=== PATIENT | female | born 1940 | race Caucasian/White ===

== ENCOUNTER 2023-02-11 14:35 | Emergency (ER) | payer MEDICARE, SELFPAY ==
[2023-02-11 15:01] VITALS: BP 113/57; PULSE 68; RESP 18; TEMP 36.2; O2SAT 100
--- NOTE | 2023-02-11 15:45 | ED.SKABFB ---
HPI - Skin/Abscess/Foreign Bdy General Chief complaint: Skin/Abscess/Foreign Body Stated complaint: Bruising Rt Upper Arm Time Seen by Provider: 02/11/23 15:45 Source: patient Mode of arrival: ambulatory Limitations: no limitations History of Present Illness HPI narrative: 82-year-old female presented for complaint of bruising to the right upper arm over the past few days. Endorses shoulder tenderness. Denies injury or fall. Taking coumadin. Denies decreased range of motion, numbness, tingling, weakness to the upper extremity. Related Data Home Medications Medication Instructions Recorded Confirmed allopurinol 100 mg tablet 100 mg PO DAILY 02/11/23 02/11/23 amlodipine 5 mg tablet 2.5 mg PO DAILY 02/11/23 02/11/23 atorvastatin 20 mg tablet 20 mg PO DAILY 02/11/23 02/11/23 clonazepam 0.5 mg tablet 0.5 mg PO BID 02/11/23 02/11/23 famotidine 20 mg tablet 20 mg PO BID 02/11/23 02/11/23 furosemide 40 mg tablet 40 mg PO DAILY 02/11/23 02/11/23 loratadine 10 mg tablet 10 mg PO DAILY 02/11/23 02/11/23 omeprazole 40 mg capsule,delayed 40 mg PO DAILY 02/11/23 02/11/23 release pen needle, diabetic 31 gauge x 02/11/23 02/11/23/16 (BD Ultra-Fine Mini Pen Needle) potassium chloride 10 mEq 20 meq PO DAILY 02/11/23 02/11/23 tablet,extended release(part/cryst) spironolactone 50 mg tablet 50 mg PO DAILY 02/11/23 02/11/23 warfarin 3 mg tablet 3 mg PO HS 02/11/23 02/11/23 Allergies Allergy/AdvReac Type Severity Reaction Status Date / Time PROCAINE HCL Allergy Unknown Uncoded 02/11/23 14:50 Review of Systems Review of Systems: CONSTITUTIONAL: Denies body aches, fever, chills, or sweats. EYES: Denies visual changes, redness, or discharge. ENT: Denies rhinorrhea, congestion CARDIOVASCULAR: Denies chest pain, palpitations, or edema. RESPIRATORY: Denies cough or dyspnea. GASTROINTESTINAL: Denies abdominal pain, nausea, vomiting, or diarrhea. SKIN: Reports bruising to right upper arm MUSCULOSKELETAL: Denies back pain, joint pain, or myalgia. NEUROLOGIC: Denies headache, numbness, tingling, or weakness. FOR[facility] Past Medical History Medical History (Updated 02/11/23 @ 17:46 by Ina Quintana APRN) Afib Diabetes GERD (gastroesophageal reflux disease) Hypertension Surgical History Surgical History (Updated 02/11/23 @ 17:46 by Ina Quintana APRN) S/P PTCA (percutaneous transluminal coronary angioplasty) Comments At time of signature, I have reviewed and agree with nursing past medical, surgical, social and family history unless otherwise noted. Please see nursing chart for further information. There is no relevant family history pertinent to the presenting complaint Exam Narrative: GENERAL: Well-appearing HEAD: Normocephalic, atraumatic. EYES: conjunctivae clear, and EOMI. ENT: Mucous membranes moist. Oropharynx without edema, erythema or lesions. NECK: Supple. No lymphadenopathy CHEST: Clear to auscultation. HEART: Regular rate and rhythm. SKIN: Warm, dry. Right lateral deltoid with yellow ecchymosis, right biceps with 15 x 8 cm area of ecchymoses purple in color. Ecchymosis is soft, nontender, normal temp. Bilateral axilla with erythematous papules on erythematous base consistent with yeast. EXT: Full active ROM to RUE. Mild tenderness with palpation over upper deltoid and yellow area of ecchymosis, no apparent joint pain with palpation; Circulation and sensation intact to extremity. No open wounds. NEURO: Alert and oriented x3. Course Course Emergency Course: Patient is aware of diagnosis, understands and agrees to treatment plan. Anticipatory guidance given. Patient agrees to follow-up as directed and is aware of reasons to seek care at the emergency department. Portions of this record may have been created with voice recognition software Level of Care: Express Care Visit Vital Signs Vital signs: Vital Signs Temperature 97.2 F L 02/11/23 15:01 Pulse Rate 68 02/11/23
== END 2023-02-11 15:58 | disposition home or self-care (01) ==
PROVIDERS: Emergency Provider Nurse Practitioner Family; PCP Nurse Practitioner Family
DX: B37.2 Candidiasis of skin and nail (principal); S40.021A Contusion of right upper arm, initial encounter; X58.XXXA Exposure to other specified factors, initial encounter; I48.91 Unspecified atrial fibrillation; E11.9 Type 2 diabetes mellitus without complications; K21.9 Gastro-esophageal reflux disease without esophagitis; I10 Essential (primary) hypertension; Z95.1 Presence of aortocoronary bypass graft; Z79.01 Long term (current) use of anticoagulants
CPT/HCPCS: 99213; G0463

== ENCOUNTER 2023-04-25 17:36 | Emergency (ER) | payer MEDICARE, SELFPAY ==
[2023-04-25 17:48] VITALS: BP 127/70; PULSE 83; RESP 18; TEMP 36.2; O2SAT 97
--- NOTE | 2023-04-25 18:00 | ED.GENADULT ---
HPI - General Adult General Chief complaint: Urogenital-Female Stated complaint: Female Urogenital Source: patient, RN notes reviewed and old records reviewed Mode of arrival: ambulatory Limitations: no limitations History of Present Illness HPI narrative: 82-year-old female presents to [facility] with complaints abdominal pain that started this a.m. with nausea and fatigue. Patient states she is worried it could be a UTI, sedation although patient denies urinary symptoms. Patient has not taken any thing for her pain. patient denies vomiting diarrhea MD complaint: abdominal pain Onset (ago): day(s) (1) Location: abdomen Radiation: non-radiation Severity: moderate Quality: aching Pain Consistency: constant Relieving factors: none Exacerbating factors: none Associated symptoms: nausea/vomiting Treatments prior to arrival: none Related Data Home Medications Medication Instructions Recorded Confirmed allopurinol 100 mg tablet 100 mg PO DAILY 02/11/23 04/25/23 amlodipine 5 mg tablet 2.5 mg PO DAILY 02/11/23 04/25/23 atorvastatin 20 mg tablet 20 mg PO DAILY 02/11/23 04/25/23 clonazepam 0.5 mg tablet 0.5 mg PO BID 02/11/23 04/25/23 famotidine 20 mg tablet 20 mg PO BID 02/11/23 04/25/23 furosemide 40 mg tablet 40 mg PO DAILY 02/11/23 04/25/23 loratadine 10 mg tablet 10 mg PO DAILY 02/11/23 04/25/23 omeprazole 40 mg capsule,delayed 40 mg PO DAILY 02/11/23 04/25/23 release pen needle, diabetic 31 gauge x 02/11/23 04/25/23 3/16 (BD Ultra-Fine Mini Pen Needle) potassium chloride 10 mEq 20 meq PO DAILY 02/11/23 04/25/23 tablet,extended release(part/cryst) spironolactone 50 mg tablet 50 mg PO DAILY 02/11/23 04/25/23 warfarin 3 mg tablet 3 mg PO HS 02/11/23 04/25/23 clopidogrel 75 mg tablet 75 mg PO DAILY 04/25/23 04/25/23 ondansetron 4 mg disintegrating 4 mg PO PRN PRN Nausea 04/25/23 04/25/23 tablet Allergies Allergy/AdvReac Type Severity Reaction Status Date / Time PROCAINE HCL AdvReac Intermediate Nausea and Uncoded 04/25/23 18:20 Vomiting Review of Systems Constitutional: Constitutional: Reports fatigue Eyes: Eyes: Reports no additional eye complaints ENT: Reports system reviewed and no additional complaints, except as documented Cardiovascular: Cardiovascular: Reports no additional cardiovascular complaints Respiratory: Respiratory: Reports no additional respiratory complaints Gastrointestinal: Gastrointestinal: Reports abdominal pain and Reports nausea Genitourinary: Genitourinary: Denies post void dribbling, Denies nocturia, Denies dysuria, Denies prolapse symptoms, Denies flank pain, Denies urinary incontinence, Denies urinary hesitancy and Denies urinary urgency Neurologic: Reports system reviewed and no additional complaints, except as documented [facility] Past Medical History Medical History Afib Diabetes GERD (gastroesophageal reflux disease) Hypertension Surgical History Surgical History S/P PTCA (percutaneous transluminal coronary angioplasty) Comments At the time of my signature, I reviewed and agree with the nursing past medical, surgical, social, and family history. There is no relevant family history pertinent to the patient complaint. Exam Const: General: cooperative, healthy appearing, no acute distress and well nourished Nutritional Appearance: well nourished Orientation/consciousness: patient oriented x3 Limitations: no limitations HENMT: Head: normal to inspection and normocephalic Ears: external ears normal, TM's normal bilaterally, mastoids normal and Abnormal EAC present Face/Nose/Sinus: normal facial exam Face and sinus: normal facial exam Mouth: Yes Normal oral and palatal mucosa present, Yes oropharynx normal and Yes moist mucous membranes Throat: posterior oropharynx normal, tonsils normal, uvula midline and no uvular edema Eyes: General: marbella
== END 2023-04-25 18:12 | disposition left against medical advice (07) ==
PROVIDERS: Emergency Provider Registered Nurse; PCP Nurse Practitioner Family
DX: R10.84 Generalized abdominal pain (principal); I48.91 Unspecified atrial fibrillation; E11.9 Type 2 diabetes mellitus without complications; K21.9 Gastro-esophageal reflux disease without esophagitis; I10 Essential (primary) hypertension; Z95.1 Presence of aortocoronary bypass graft; Z79.01 Long term (current) use of anticoagulants
CPT/HCPCS: 81003; 99212; G0463